=== PATIENT | female | born 1990 | race Caucasian/White ===

== ENCOUNTER → 2018-02-03 15:49 | Outpatient (CLI) | payer OTHER, SELFPAY ==
--- NOTE | 2018-02-03 15:52 | CT_ITS ---
STUDY: CT RIGHT ANKLE WITHOUT CONTRAST REASON FOR EXAM: Female, 27 years old. Right ankle pain. Previous surgery. RADIATION DOSAGE (If Supplied By Facility): CTDIvol = ( 15.35 ) mGy, DLP = ( 408.71 ) mGycm TECHNIQUE: Thin section transaxial imaging of the ankle was obtained, with sagittal and coronal reconstructed images. Individualized dose optimization techniques were used for this CT. COMPARISON: None. FINDINGS: No definite acute abnormality. There is a compression plate and screws across the distal fibular shaft fixating previous fracture. There is thick and extensive fusion between the distal fibula and tibia across the interosseous membrane. There is a healed previous posterior tibial metaphyseal fracture with mild irregularity along the anterior and articular surface. Several ununited densities consistent with avulsion fractures are seen beyond the tip of the medial malleolus. Largest is 7 mm. No significant widening of the ankle joint. CT scan is markedly limited for evaluation of the ligaments and tendons across the ankle. No gross soft tissue abnormality. CT/Extremity Lower without Contra IMPRESSION: No acute fracture or dislocation. Postsurgical and post traumatic changes as above. Electronically Signed: Duncan Hanson MD at 10:32 EDT , Service support ,
== END ==
PROVIDERS: Visit Provider Specialist
DX: M19.171 Post-traumatic osteoarthritis, right ankle and foot (principal); M24.271 Disorder of ligament, right ankle; E66.3 Overweight
CPT/HCPCS: 73700

== ENCOUNTER → 2018-06-16 19:16 | Outpatient (CLI) | payer OTHER, SELFPAY ==
[2018-06-16 21:35] LABS: Chlamydia Trachomatis by PCR Negative (Negative); Neisserai gonorrhoeae by PCR Negative (Negative); Probe Check PASS; Sample Adequacy Control PASS; Specimen Processing Control PASS
[2018-06-19 18:42] LABS: HPV Reflexed? NOT INDICATED
== END ==
PROVIDERS: Referring Provider Nurse Practitioner Women's Health; Visit Provider Nurse Practitioner Women's Health
DX: Z12.4 Encounter for screening for malignant neoplasm of cervix (principal); Z11.3 Encounter for screening for infections with a predominantly sexual mode of transmission
CPT/HCPCS: 87491; 87591; 88175; G0145

== ENCOUNTER 2021-08-09 12:38 | Day surgery (SDC) | payer BC, SELFPAY ==
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
[2021-08-09] MEDS: Lactated Ringers 1,000 ML 15 ML IV (12:45)
[2021-08-09 13:11] LABS: Internal QC Validated? YES +Cl - CLEAR BKGD; Pregnancy, Urine Negative Negative
[2021-08-09 13:23] VITALS: BP 134/66; PULSE 89; RESP 16; TEMP 36.5; O2SAT 94; BMI 45.6
[2021-08-09 13:39] LABS: Hematocrit 42.9 % (37-47); Hemoglobin 13.9 g/dL (12.0-15.0); Mean Corp Hgb Conc 32.4 g/dL (32-36); Mean Corpuscular Volume 89.6 fL (81-99); Mean Platelet Vol. 10.3 fl (6.2-12.0); Platelet Count 312 K/mm3 (150-450); RBC Distribution Width SD 42.5 fl (35.1-43.9); Red Blood Count 4.79 M/mm3 (4.2-5.4)
--- NOTE | 2021-08-09 14:10 | FALS_PTH ---
PATIENT: CAROLE SORIA LOC: [facility] [place] U#:[id number] AGE/SX: 31/F ROOM: RE08/09/[address]: Dr. Leilani Brady, MDDOB: 1990 BED: DIS: 08/09/2021 SPEC #: [id number] RECD: 08/09/21 15:30 STATUS: RUBIN JACKIE #: [id number] JOSE: 08/09/21 14:[address]: Leilani Brady DEPT: SURGICAL PATHOLOGY RECD BY: Luisa Hyde ENTERED: 08/10/21 10:52 SP TYPE: FALL TUBES OTHR DR: Yaritza Primary Care Phys Tissues: Fallopian tube Procedures: Surgery Specimen Level II HEADER OPERATION: Laparoscopic salpingectomy, Mirena IUD removal PRE-OP DIAGNOSIS: Sterilization, removal of Mirena IUD TISSUE SUBMITTED: Bilateral fallopian tubes MICROSCOPIC DIAGNOSIS Right and left fallopian tubes, bilateral salpingectomies: Complete segments of fallopian tubes. Benign paratubal cyst. AM:jack 08/13/2021 MICROSCOPIC DESCRIPTION Slides are reviewed. GROSS DESCRIPTION Received in fixative is one container labeled with the patient's name and designated bilateral fallopian tubes. The specimen consists of two fallopian tubes with an average length of 6 cm and has an average diameter of 0.8 cm and 3 cm and has an average diameter of 0.8 cm. Both fallopian tubes have normal fimbriated ends. One fallopian tube is received in two fragments. No mass lesions are identified. Molder Floor sections are submitted in two cassettes as follows: 1 - one fallopian tube, 2 - fallopian tube received in two fragments. / AM:jack 08/10/21 TC:5 CPT: 88847 x2
[2021-08-09] MEDS: Bupivacaine Mpf 0.5% 30 ML VIAL (14:21)
--- NOTE | 2021-08-09 14:47 | PCM.DC ---
Discharge Instructions Diet Discharge Diet: No restrictions Activity May resume sexual activity in: 2 weeks Lifting Restrictions: 20-25 lbs Dressing / Incision Call your doctor if your incision/area has: Continuous Slow Oozing, Sudden Increased Bleeding, Increased Pain/ Swelling, Increased Redness, Foul Smelling Discharge and Swelling at the incision site Call your doctor if you observe: Fever of 101 or Higher, Inability to urinate, Inability to have a bowel movement, Using more than 1 pad per hour and Uncontrolled pain Additional Dressing/Incision Instructions:: You have skin glue over your incision sites, do not pick off. You may shower and let the soap and water run over the incision sites and dab dry. Follow Up Care Please Follow Up With: Leilani Brady MD When: 1-2 weeks post OP if you need an appointment please call [phone] Test Results: Test results from this visit will be discussed in further detail at your follow-up appointment, if applicable. Discharge Plan Admission Attending Provider: Leilnai Brady Primary Care Provider: Care Physician,No Primary Discharge Orders/Prescriptions Prescriptions: No Action Tanesha 14 mcg/24 hour (3 years) intrauterine device 1 insert Intrauterine ONCE RF: 0 cholecalciferol (vitamin D3) 25 mcg (1,000 unit) capsule 25 mcg PO DAILY RF: 0 ascorbate calcium (vitamin C) 500 mg tablet 500 mg PO DAILY RF: 0 calcium carbonate [Tums] 200 mg calcium (500 mg) Tablet,Chewable 200 mg PO BID PRN (Reason: Indigestion) RF: 0 naproxen sodium [Aleve] 220 mg Capsule 220 mg PO BID PRN (Reason: Pain) RF: 0
--- NOTE | 2021-08-09 14:48 | PCM.OPRPT ---
Problems Associated Problem List Diagnoses (1) Encounter for sterilization: Report of Operation Date of Procedure: 08/09/21 Pre-Operative Diagnosis: desires sterilization, IUD removal Post-Operative Diagnosis: same Surgery/Procedure Performed:: laparoscopic bilateral salpingectomy, removal of mirena IUD Description of Surgical Findings:: normal tubes and ovaries bilaterally Surgeon: Leilani Brady oyster harvester: Dalila Al Type of Anesthesia: General and Local Special Medications: 0.5% marcaine Specimen's removed: bilateral fallopian tubes MIRENA IUD removed- not sent to lab Drains: none Estimated Blood Loss (mL): 5 Fluids Replaced: 700 Description of Procedure: After informed consent was obtained patient was taken to the operating room she was placed in supine position she was given anesthesia. She was then placed in the [facility] stirrups and she was prepped and draped in normal sterile fashion. Bladder was drained prior to the start of procedure. At this time attention was turned to the vaginal portion where weighted speculum placed at posterior fornix vagina single-tooth tenaculum was used to gently grasp the anterior lip of cervix . IUD strings visible and mirena iud removed without difficulty. uterus was gently sounded to approximately 8cm. Uterine manipulator was placed without difficulty. Legs then placed in parallel with the abdomen the tenaculum and the weighted speculum were removed. 2 towel clamps were placed at level of umbilicus. Marcaine was injected infraumbilical and a small incision was made. The 5 mm trocar was placed under direct visualization. CO2 gas was used to insufflate the intra-abdominal cavity. Upon inspection no gross abnormalities appreciated- the uterus tubes and ovaries appeared to be normal. At this time then the LLQ and RLQ ports were placed First Marcaine was injected and small incision was made a knife and the 5 mm trocars were placed. At this time then tubes were traced back to the fimbriated ends. enseal was used to coagulate and ligate along mesosalpynx bilaterally until tubes removed completely. Good hemostasis was appreciated. At this time procedure was deemed complete successful. The gas was desufflated on from the intra-abdominal cavity. The trochars were removed. Skin was closed using 4-0 Monocryl in a subcutaneous fashion. Dermabond glue was placed. Instrument lap and needle counts were correct ?2. The uterine manipulator was removed. Vaginal sweep was performed it was negative. There were no complications anticipated normal postoperative course for this patient. Grafts/Implants Used: none Procedure Start Time: 14:21 Procedure Stop Time: 14:49 Complications none Admit VTE Documentation VTE Present on Admission: Yes VTE Mechan Device Prophylaxis: SCD's VTE Pharm Prophylaxis ordered?: No Reason prophylaxis not ordered:: Procedure Not Indicated
[2021-08-09 15:02] VITALS: BP 108/68; BP 134/66; PULSE 62; RESP 18; TEMP 36.3; O2SAT 95
[2021-08-09 15:15] VITALS: BP 114/75; BP 134/66; PULSE 61; RESP 18; O2SAT 97
[2021-08-09 15:20] VITALS: BP 113/73; BP 134/66; PULSE 59; RESP 18; TEMP 36.3; O2SAT 99
[2021-08-09 15:50] VITALS: BP 134/66
[2021-08-09] MEDS: Acetaminophen 500 MG Tablet 1000 MG PO (15:56)
== END 2021-08-09 16:15 | disposition home or self-care (01) ==
LOC: SDC 12:39 → AC 12:40
PROVIDERS: Referring Provider Obstetrics & Gynecology; Visit Provider Obstetrics & Gynecology
PROC: (CPT 58661; principal; 2021-08-09 13:55)
DX: Z30.2 Encounter for sterilization (principal); N83.8 Other noninflammatory disorders of ovary, fallopian tube and broad ligament; Z30.432 Encounter for removal of intrauterine contraceptive device
CPT/HCPCS: 58301; 58661; 81025; 85027; 88302; J7120; C1760; J2405

== ENCOUNTER 2024-06-20 17:51 | Emergency (ER) | payer BC, SELFPAY ==
[2024-06-20 17:51] VITALS: BP 170/99; PULSE 83; RESP 18; TEMP 36; O2SAT 95; BMI 44.3
--- NOTE | 2024-06-20 18:17 | EDS_ITS ---
HPI History of Present Illness Chief Complaint: Back Informant: patient Onset/Context/Timing Onset: Today Context: Gradual Onset Timing: Continuous Quality: - (Cramping) Location: Lumbar, Buttock and Right Leg Worsened by: improves with Nothing Relieved by: Nothing Associated Symptoms Associated Symptoms: Numbness and Radiation to Right Leg; Negative for Radiation to Left Leg, Fever, Abdominal Pain, Dysuria, Unable to Ambulate, Unable to Transfer, Urinary Retention, Urinary Incontinence, Constipation or Fecal Incontinence Narrative Narrative: Patient presents with back pain in the began today. Patient states she has been having some mild back pain over the past couple weeks. Patient states she was feeling better yesterday. Patient states she went to [place] [facility] and did some marching with the band. Patient states that she had no pain yesterday. Patient states that when she woke up today she noted some pain in her low back. Patient states that over the past few hours she noted some num bness and tingling in her right leg. Patient states the pain starts in her posterior aspect of her right hip and radiates down to her right lower leg. Patient denies any bowel or bladder changes. Patient denies any saddle anesthesia. Patient denies any trauma or injury. [facility] Medical History Wears contact lenses Depression Anxiety Marijuana use Alcohol use Arthritis Back pain Heartburn Non-smoker Shortness of breath on exertion Leg cramps History of edema Cardiology follow-up encounter Lyme disease Trimalleolar fracture Cytomegalovirus mononucleosis Home Medications ?Medication ?Instructions ?Recorded ?Last Taken ?Type levonorgestrel 14 mcg/24 hr (up to 1 insert intrauterine ONCE 06/16/18 Unknown History 3 yrs) 13.5 mg intrauterine device (Tanesha) ascorbate calcium (vitamin C) 500 500 mg PO DAILY 01/11/21 Unknown History mg tablet cholecalciferol (vitamin D3) 25 25 mcg PO DAILY 01/11/21 Unknown History mcg (1,000 unit) capsule calcium carbonate (Tums) 200 mg PO BID PRN Indigestion 08/06/21 Unknown History naproxen sodium 220 mg capsule 220 mg PO BID PRN Pain 08/06/21 Unknown History (Aleve) cyclobenzaprine 10 mg tablet 10 mg PO QHS PRN PRN Muscle Spasm 06/20/24 Unknown Rx #10 TABLETS hydrocodone-acetaminophen 5-325mg 1 tab PO Q6H PRN PRN Pain 3 days 06/20/24 Unknown Rx 5mg-325mg #10 TABLETS Allergy/AdvReac Type Severity Reaction Status Date / Time amoxicillin Allergy PT UNSURE Verified 06/20/24 17:55 OF REACTION ephedrine Allergy PT UNSURE Verified 06/20/24 17:55 OF REACTION Family History Mother Hyperlipidemia Psoriasis Father Hypertension Diabetes Hyperlipidemia Cancer Grandmother Thyroid disorder Grandfather Hypertension Myocardial infarction Skin cancer Surgical History s/p right ankle surgery H/O cardiac radiofrequency ablation Social History (Updated 06/20/24 @ 18:[address] 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 [employer] ED Constitutional Constitutional ED: Denies chills or fever(s) Eyes Eyes: Denies blurry vision or change in vision ENT ENT ED: Denies rhinorrhea or sore throat Cardiovascular Cardiovascular: Denies chest pain or palpitations Respiratory/Chest Respiratory/Chest: Denies cough or dyspnea Gastrointestinal Gastrointestinal: Denies nausea or vomiting Genitourinary Genitourinary ED: Denies dysuria or hematuria Musculoskeletal Musculoskeletal: Reports back pain; Denies neck pain Integumentary Denies abscess or rash Neurologic Neurologic: Denies headache(s) or weakness Allergic/Immunologic Allergic/Immunologic ED: Denies mouth swelling or urticaria EXAM Physical Exam Const Vital Signs: 06/20/24 17:51 Temperature 96.8 F L Temperature Source Temporal Pulse Rate 83 Respiratory Rate 18 Blood Pressure 170/99 H Blood Pressure Mean 122 Pulse Ox 95 Oxygen Delivery Method Room Air Positive well nourished and well developed General Appearance ED: well developed and NAD HEENT Reports moist mucous membranes Neck supple and no JVD Back/Spine Back/Spine Narrative: There is mild tenderness over the lumbar spine and paraspinal muscles. There is no bony crepitance or step-off. There is no edema or ecchymosis. Range of motion was limited in all motions of the lumbar spine secondary to pain. Strength is 5/5 bilaterally upper and lower extremities. There are no sensory deficits noted. Deep tendon reflexes are 2+/4 in the Achilles reflexes bilaterally and in the right patellar reflex. Deep tendon reflex is 1+/4 in the left patellar reflex. Lumbar Spine / Lower Back: ROM limited Neuro oriented x3 and no sensory deficits noted Sensorium / Orientation: alert Motor Exam: strength 5/5 throughout Deep Tendon Reflexes: Rt Patellar (L4): 2+, Lt Patellar (L4): 1+, Rt Ankle (S1): 2+ and Lt Ankle (S1): 2+ Deep Tendon Reflexes Back: Rt Patellar (L4): 2+, Lt Patellar (L4): 1+, Rt Ankle (S1): 2+ and Lt Ankle (S1): 2+ Psych mental status grossly normal MDM MDM MDM Narrative Medical decision making narrative: Differential diagnosis includes lumbosacral strain, sciatica, spondylolisthesis, lumbar radiculopathy, and degenerative disc disease. X-rays of the lumbar spine will be obtained to assess for spondylolisthesis and degenerative disc disease. Radiography Diagnostic Testing: Clinical Impression(s) from Imaging Studies Lumbar Spine X-Ray 06/20/24 18:34 IMPRESSION: No evidence of lumbar spinal fracture or spondylolisthesis. Electronically Signed: Florentino Cruz MD at 19:22 EDT , X-rays of the lumbar spine were obtained. There are 2 views. On my independent interpretation, there is no acute fracture or spondylolisthesis. There are some mild degenerative changes noted. Radiologist also interpreted the x-rays and agrees. Treatment and Re-Evaluation Narrative: Patient was given injection of Toradol and Norflex here. Patient had some relief of her pain. Patient was advised of her findings. Patient was instructed to ice the area. Patient was given a prescription for a short course of [place] and Flexeril. Patient was instructed to follow-up with her primary care physician in 3 to 5 days for further evaluation and possible further testing. Patient understood and was agreeable with the plan. All questions were answered. Discharge Plan Triage Chief Complaint: Back ED Provider: Emanuel Cummins Dx/Rx/DC Orders Clinical Impression: Acute lumbosacral myofascial strain, Sciatica of right side Instructions: ED Back Sprain/Strain, ED Sciatica Prescriptions: New hydrocodone-acetaminophen 5-325 mg tablet 1 tab PO Q6H PRN PRN (Reason: Pain) 3 Days Qty: 10 0RF cyclobenzaprine 10 mg tablet 10 mg PO QHS PRN PRN (Reason: Muscle Spasm) Qty: 10 0RF No Action Tanesha 14 mcg/24 hour (3 years) intrauterine device 1 insert Intrauterine ONCE cholecalciferol (vitamin D3) 25 mcg (1,000 unit) capsule 25 mcg PO DAILY ascorbate calcium (vitamin C) 500 mg tablet 500 mg PO DAILY calcium carbonate [Tums] 200 mg calcium (500 mg) Tablet,Chewable 200 mg PO BID PRN (Reason: Indigestion) naproxen sodium [Aleve] 220 mg Capsule 220 mg PO BID PRN (Reason: Pain) Primary Care Provider: Katiuska Khalil Referrals: Care Physician,No Primary [Non-Staff] - Katiuska Khalil, ELECTRIC MULE DRIVER-C [Primary Care Provider] - 3-5 Days Print Language: Upper Sorbian Disposition Disposition: Home, Self Care
--- NOTE | 2024-06-20 18:34 | RAD_ITS ---
EXAM: XR LUMBOSACRAL SPINE, 2 OR 3 VIEWS CLINICAL INDICATION: Injury/Pain TECHNIQUE: Frontal and lateral views of the lumbar spine and sacrum. COMPARISON: No relevant prior studies available. FINDINGS: VERTEBRAE: Unremarkable. Preserved vertebral body height. No fracture. No spondylolisthesis. Preservation of the normal lumbar lordosis. No significant facet arthropathy. DISC SPACES: No acute findings. Disc spaces are maintained. GASTROINTESTINAL TRACT: Unremarkable as visualized. Included bowel gas pattern is non-obstructive. RAD/Lumbar Spine 2 or 3 Views IMPRESSION: No evidence of lumbar spinal fracture or spondylolisthesis. Electronically Signed: Florentino Cruz MD at 19:22 EDT ,
[2024-06-20] MEDS: Ketorolac 60 MG/2 ML Vial IM (18:36)
[2024-06-20] MEDS: Orphenadrine 60 MG/2 ML Ampul IM (18:37)
[2024-06-20 20:23] VITALS: BP 155/70; PULSE 78; RESP 18; TEMP 36; O2SAT 98
== END 2024-06-20 20:24 | disposition home or self-care (01) ==
PROVIDERS: Emergency Provider Emergency Medicine; PCP Nurse Practitioner Family; Visit Provider Emergency Medicine
DX: S39.012A Strain of muscle, fascia and tendon of lower back, initial encounter (principal); M54.31 Sciatica, right side
CPT/HCPCS: 72100; 96372; 99282